=== PATIENT | male | born 1955 | race Caucasian/White ===

== ENCOUNTER 2021-07-07 11:47 | Emergency (ER) | payer OTHER, BC ==
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
== END 2021-07-07 13:55 | disposition home or self-care (01) ==
LOC: CC.ED 11:47
DX: S13.4XXA Sprain of ligaments of cervical spine, initial encounter (principal); S31.31XA Laceration without foreign body of scrotum and testes, initial encounter; S40.212A Abrasion of left shoulder, initial encounter; V29.9XXA Motorcycle rider (driver) (passenger) injured in unspecified traffic accident, initial encounter; Y93.55 Activity, bike riding
CPT/HCPCS: 72125; 99284-25